=== PATIENT | female | born 1995 | race Caucasian/White ===

== ENCOUNTER 2023-10-11 15:39 | Outpatient (REF) | payer OTHER, SELFPAY ==
--- NOTE | ~2023-10-11 | US_ITS ---
EXAMINATION: US PELVIS CLINICAL INFORMATION: Dyspareunia. Intramenstrual bleeding COMPARISON: None available. TECHNIQUE: Ultrasound of the pelvis is performed using both transabdominal and transvaginal transducers along with Doppler. Transvaginal imaging is performed due to inadequate visualization transabdominally. FINDINGS: Uterus: The uterus is anteverted, anteflexed and measures 9.1 x 3.8 x 5.0 cm The double wall endometrial thickness measures 2.3 cm The uterus is smooth in contour and has normal myometrial echogenicity. No visible fibroid. Adnexa: Both ovaries are visualized. There is normal color flow to the adnexa. There is no ovarian torsion. There is no pelvic ascites or fluid collection. Right ovary measures 3.0 x 1.9 x 2.5 cm and volume 7.5 mL. It appears unremarkable. Previously right ovary measured 2.9 x 1.3 x 2.6 cm. Left ovary measures 3.0 x 2.0 x 3.5 cm and volume 10.6 mL. It appears unremarkable. Previously it measured 2.2 x 1.5 x 2.8 cm and volume 4.7 mL. There is no free fluid in the cul-de-sac. US/US pelvic and transvaginal IMPRESSION: Slightly thickened endometrium measuring 2.3 cm but otherwise unremarkable uterus and ovaries.
== END 2023-10-11 15:40 | disposition home or self-care (01) ==
LOC: HO.US 15:39
PROVIDERS: PCP Internal Medicine; Visit Provider Advanced Practice Midwife
DX: N94.10 Unspecified dyspareunia (principal); N92.3 Ovulation bleeding
CPT/HCPCS: 76830; 76856

== ENCOUNTER 2023-10-26 15:25 | Outpatient (REF) | payer OTHER, SELFPAY ==
--- NOTE | ~2023-10-26 | US_ITS ---
EXAMINATION: US PELVIS CLINICAL INFORMATION: Follow-up thickened endometrium. LMP 10/13/2023 COMPARISON: Pelvic ultrasound 10/11/2023 TECHNIQUE: Ultrasound of the pelvis is performed using both transabdominal and transvaginal transducers along with Doppler. Transvaginal imaging is performed due to inadequate visualization transabdominally. FINDINGS: Uterus: The uterus is anteverted and measures 7.9 x 3.6 x 4.6 cm. The endometrial thickness is 1.0 cm. This previously measured measured 2.3 cm. Question of echogenic focus within the endometrium which raises the possibility of an endometrial polyp. The uterus is smooth in contour and has normal myometrial echogenicity. No visible fibroid. Adnexa: Both ovaries are visualized. There is normal color flow to the adnexa. There is no ovarian torsion. Right ovary measures 3.4 x 2.3 x 1.9 cm. Volume 7.8 mL. Left ovary measures 4.1 x 3.1 x 2.2 cm. Volume 14.6 mL. US/US pelvic and transvaginal IMPRESSION: 1. Normal endometrial thickness is 1.0 cm. 2. Question of echogenic focus within the endometrium which raises the possibility of an endometrial polyp. 3. Enlarged left ovary. 4. Normal right ovary.
== END 2023-10-26 15:26 | disposition home or self-care (01) ==
LOC: HO.US 15:25
PROVIDERS: PCP Internal Medicine; Visit Provider Advanced Practice Midwife
DX: R93.5 Abnormal findings on diagnostic imaging of other abdominal regions, including retroperitoneum (principal)
CPT/HCPCS: 76830; 76856

== ENCOUNTER 2023-11-22 14:51 | Outpatient (REF) | payer OTHER, SELFPAY ==
[2023-11-22 16:53] LABS: Free T4 (Free Thyroxine) 0.99 ng/dL (0.71-1.85); Thyroid Stimulating Hormone 1.31 uIU/mL (0.32-4.0)
[2023-11-23 08:10] LABS: HBS Num1 0.01 mIU/mL (0-7.99); HBc Num1 1.15 S/CO (0.00-0.79); HBsAGNum1 0.39 S/CO (0.00-0.99); HIV AB/AG Nonreactive (Nonreactive); HIV Num 1 0.06 S/CO (0.00-0.99); Hepatitis B Surface Antigen Negative (Negative); ~HepC Num1 0.25 S/CO (0.00-0.79); ~Hepatitis B Surface Antibody NONREACTIVE (Nonreactive); ~Hepatitis C Antibody Nonreactive (Nonreactive)
[2023-11-23 08:34] LABS: Syphilis Screen Nonreactive (Nonreactive)
[2023-11-23 12:30] LABS: HBc Num2 1.23 S/CO; HBc Num3 1.19 S/CO; Hepatitis B Core Antibody Reactive (Nonreactive)
[2023-11-24 19:08] LABS: Hepatitis B Core Antibody IgM NON-REACTIVE (NON-REACTIVE)
== END 2023-11-22 14:52 | disposition home or self-care (01) ==
LOC: HO.HHCL 14:51
PROVIDERS: Visit Provider Family Medicine
DX: K59.00 Constipation, unspecified (principal); Z11.3 Encounter for screening for infections with a predominantly sexual mode of transmission
CPT/HCPCS: 36415; 84439; 84443; 86704; 86705; 86706; 86780; 86803; 87340; 87389

== ENCOUNTER 2025-01-30 10:08 | Outpatient (REF) | payer OTHER, SELFPAY ==
--- OUTSIDE RECORDS SUMMARY | 2025-01-30 10:50 | XMS_ITS | Encounter Summary ---
Author Organization [employer] Address [address] [place] [address] [address] [place] [address] Care Team Providers Care Senior Managing Director Name Role Phone Rosmery Sagastume MD Primary Care Provider [phone] Reason for Visit * Reason Onset Date Comments Returning Call 10/13/2023 Encounter Details Date Type Department Care Team (Late st Contact Info) Description 10/13/2023 Telephone [facility] [address] [place] [address] [phone] Rosmery Sagastume MD [address] [place] [address] [phone] Returning Call Social History Tobacco Use Types Packs/Day Years Used Date Smoking Tobacco: Former Passive Smoke Exposure: Current Smokeless Tobacco: Never Alcohol Use Standard Drinks/Week Comments Yes 0 (1 standard drink = 0.6 oz pur e alcohol) Comments No Sex and Gender Information Value Date Recorded Sex Assigned at Female 07/06/2022 10:36 AM EDT Legal Sex Female 10:36 AM EDT Gender Identity Female 07/06/2022 10:36 AM EDT Sexual Orientation Straight 07/06/2022 10 :36 AM EDT documented as of this encounter Miscellaneous Notes * Telephone Encounter - Jovani Alcazar - 10/13/2023 3:49 PM EST Tct from pt stating they received a call copy writer didn't see any notes. documented in this encounter Plan of Treatment Upcoming Encounters Date Type Department Care Team (Late st Contact Info) Description 03/12/2025 1:15 PM EDT Office Visit [facility] [address] [place] [phone] Rosmery Sagastume MD [address] [place] [address] documented as of this encounter Visit Diagnoses Not on filedocumented in this encounter Care Teams Senior Managing Director Relationship Specialty Start Date End Date Rosmery Sagastume MD [address] [place] [address] PCP - General Family Medicine 11/22/23 documented as of this encounter
[2025-01-30 11:46] LABS: HIV AB/AG Nonreactive (Nonreactive); HIV Num 1 0.07 S/CO (0.00-0.99)
[2025-01-30 11:48] LABS: Syphilis Screen Nonreactive (Nonreactive)
[2025-01-30 17:48] LABS: Bacterial Vaginosis PCR POSITIVE (Negative); Candida Group PCR NOT DETECTED (Not Detect); Candida glab krusei PCR NOT DETECTED (Not Detect); Trichomonas vaginalis PCR NOT DETECTED (Not Detect)
[2025-01-30 18:21] LABS: CT PCR NOT DETECTED (Not Detect.); NG PCR NOT DETECTED (Not Detect.)
== END 2025-01-30 10:09 | disposition home or self-care (01) ==
LOC: HO.HHCL 10:08
PROVIDERS: Visit Provider Advanced Practice Midwife
DX: Z11.3 Encounter for screening for infections with a predominantly sexual mode of transmission (principal)
CPT/HCPCS: 36415; 81515; 86780; 87389; 87491; 87591

== ENCOUNTER 2025-02-26 12:36 | Outpatient (REF) | payer OTHER, SELFPAY ==
--- NOTE | ~2025-02-26 | US_ITS ---
CLINICAL HISTORY: AUB US pelvis transabdominal and transvaginal with Doppler Comparison: None provided Findings: Transabdominal scanning performed for overall anatomy. Transvaginal scanning performed for additional detail. Anteverted uterus is 7.7 cm length. Normal myometrium. Endometrium 2 mm thickness. Small amount of lower uterine segment fluid. No evidence of intrauterine gestation. Right ovary 2.9 x 1.5 x 2.9 cm. Left ovary 3.2 x 1.9 x 4.6 cm. Exophytic left ovarian cyst measuring 16 mm. Small amount of adjacent free fluid. Normal color Doppler with arterial/venous spectral tracing of both ovaries. IMPRESSION: 1. No acute process. This document has been electronically signed by: Karina Wood MD on 02/27/2025 13:56:41
--- OUTSIDE RECORDS SUMMARY | 2025-02-26 13:57 | XMS_ITS | Encounter Summary ---
Author Organization [employer] Address [address] [place] [address] 7[address] [place] [address] Care Team Providers Care Facial Operator Name Role Phone Rosmery Sagastume MD Primary Care Provider [phone] Reason for Visit * Reason Onset Date Comments Returning Call 10/13/2023 Encounter Details Date Type Department Care Team (Late st Contact Info) Description 10/13/2023 Telephone [facility] [address] [place] [address] [phone] Rosmery Sagastume MD [address] [place] [address] [phone] Returning Call Social History Tobacco Use Types [...] from pt stating they received a call advertising writer didn't see any notes. documented in this encounter Plan of Treatment Upcoming Encounters Date Type Department Care Team (Late st Contact Info) Description 03/12/2025 1:15 PM EDT Office Visit [facility] [address] [place] [phone] Rosmery Sagastume MD [address] [place] [address] documented as of this encounter Visit Diagnoses Not on filedocumented in this encounter Care Teams Facial Operator Relationship Specialty Start Date End Date Rosmery Sagastume MD [address] [place] [address] PCP - General Family Medicine 11/22/23 documented as of this encounter
== END 2025-02-26 12:37 | disposition home or self-care (01) ==
LOC: HO.HMGCX 12:36
PROVIDERS: PCP Family Medicine; Visit Provider Advanced Practice Midwife
DX: N93.9 Abnormal uterine and vaginal bleeding, unspecified (principal)
CPT/HCPCS: 76830; 76856

== ENCOUNTER → 2025-02-26 12:40 | Outpatient (BNV) | payer OTHER, SELFPAY | PROVIDERS: PCP Family Medicine; Visit Provider Radiology Diagnostic Radiology | DX: N93.9 Abnormal uterine and vaginal bleeding, unspecified (principal) | CPT/HCPCS: 76830; 76856 ==

== ENCOUNTER 2025-03-12 13:37 | Outpatient (REF) | payer OTHER, SELFPAY ==
--- OUTSIDE RECORDS SUMMARY | 2025-03-12 14:07 | XMS_ITS | Encounter Summary ---
Author Organization [employer] Address [address] [facility] 7t [place] [address] Care Team Providers Care Front Desk Specialist Name Role Phone Rosmery Sagastume MD Primary Care Provider [phone] Reason for Visit * Reason Onset Date Comments charperp 03/08/2025 Encounter Details Date Type Department Care Team ([facility] st Contact Info) Description 03/08/2025 Telephone [facility] [address] [place], [place] [phone] Rosmery Sagastume MD [address] [place], [place] [phone] charper Social History Tobacco Use Types Packs/Day Years Used Date Smoking Tobacco: Some Days Cigarettes Passive Smoke Exposure: Current Smokeless Tobacco: Never Alcohol Use Standard Drinks/Week Comments Yes 0 (1 standard drink = 0.6 oz pur e alcohol) Depression Answer Date Recorded Patient Health Questionnaire-9 Score 1 11/22/2023 Patient Health Questionnaire-9 Score 1 11/22/2023 Last PHQ-9: Questionnaire Data Not on file 0 11/22/2023 Housing Stability Answer Date Recorded What is your housing situation today? I have iris byers 03/02/[address] you li ve. Do you have problems with any of the following? None of the above 03/02/2025 Food Insecurity Answer Date Recorded Within the past 12 months, y ou worried that your food would run out before you got money to buy more: Never True 03/02/2025 Within the past 12 months,th e food you bought just didn't last and you didn't have enough money to get more: Never True Transportation Answer Date Recorded In the past 12 months, has l ack of transportation kept you from medical appts, meetings, work or from getting things needed for daily living? No 03/02/2025 Utilities Answer Date Recorded In the past 12 months, has t he electric, gas, oil or water company threatened to shut off services in your home? No 03/02/2025 Depression Answer Date Recorded Patient Health Questionnaire-2 Score 0 11/22/2023 Internet Access Answer Date Recorded Internet Access Q1 No 03/02/2025 Internet Access Q2 I do not want or need it 02/05 Comments No Sex and Gender Information Value Date Recorded Sex Assigned at Female 07/06/2022 10:36 AM EDT Legal Sex Female 10:36 AM EDT Gender Identity Female 07/06/2022 10:36 AM EDT Sexual Orientation Straight 07/06/2022 10 :36 AM EDT documented as of this encounter Miscellaneous Notes * Telephone Encounter - Marielos Lechuga [place] - 03/08/2025 12:13 PM EDT ..Chart Prep Labs: done Images: US pelvic done Vaccines due: Covid Due, Hep B Due, and PCV20 Due Referrals: Not Applicable Screenings: Not Applicable Overdue care gaps: Sbirt, PQ9, GAD7, and Disability documented in this encounter Plan of Treatment Not on file documented as of this encounter Visit Diagnoses Not on filedocumented in this encounter Additional Health Concerns Assessment Noted Time PHQ-9 Depression Total Score: 1 11/22/19 24 3:05 PM EDT documented as of this encounter Care Teams Front Desk Specialist Relationship Specialty Start Date End Date Rosmery Sagastume MD [address] [place] [address] PCP - General Family Medicine 11/22/23 documented as of this encounter
--- OUTSIDE RECORDS SUMMARY | 2025-03-12 14:08 | XMS_ITS | Continuity of Care Document ---
Author Organization [place] [facility] Address [address] [facility] [address] [place] [address] Care Team Providers Care Spanish Tutor Name Role Phone SATINDER ZEPEDA Primary Care Provider Assessment Encounter Date Assessment Date Assessment LastModified by Organization Details LastModified Time 03/07/2025 03/07/2025 Visit With: DEBBY Allen Use of Antihistamine s: Yes If yes: Vial Test Change in medications: No If yes Increase in asthma symptoms If yes, inhaler use: Reaction to last injections: No If yes: Allergy Symptoms: Other: Missed: Dose Aware of Vial Test Aware: Notes: [email or web address] Not available 03/07/2025 15:44:23 Plan of Treatment Reminders Order Date Submit Date Provider Last Modified By Organization Details Last Modified Time Details Appointments None record ed. Lab None record ed. Referral None record ed. Procedures None record ed. Surgeries None record ed. Imaging None record ed. Medication Orders None record ed. Patient TargetsNo targets recorded. Patient InstructionsNo instructions recorded. Reason for Referral None Reported. Problems Name Problem SNOMED Code Status Onset Date Resolution Date Notes Provider Name and Address Organization Details Recorded Time Nasal congestion 25881263 Active 2023 ERICA HWANG PA-C [address] [facility],[place] [address], [place], [address], [place] [facility] 4 12:14:58 Allergic rhinitis 60351926 Active 2023 ERICA HWANG PA-C [address] [facility], [place], [address], [place] [facility] 4 12:15:06 Deviated nasal septum 539510771 Active 2023 ERICA HWANG PA-C [address], [place], [address], [place] [facility] 4 12:15:27 Chronic mouth breathing 140038439 Active 2023 ERICA HWANG PA-C [address], [place], [address], [facility] - [facility] 4 12:20:11 Seasonal allergic rhinitis 048199058 Active 2023 ERICA HWANG PA-C [address], [place], [address], [place] [facility] 4 12:22:51 Non-allergi c rhinitis 322649606567 Active 2023 ERICA HWANG PA-C [address], [facility] [place], [address], [place] [facility] 4 12:22:51 Disorder of smell 182667077 Active 2023 ERD FRANCISCO MD [address], [facility] [place], [address], [facility] - [facility] 4 12:41:12 Chronic sinusitis 15327104 Active 2023 RED FRANCISCO MD [address], [facility] [place], [address], [facility] - [facility] 4 08:43:35 Perennial allergic rhinitis 421545182 Active 2023 BENNY SIFUENTES [facility] [address], [place], [address], [facility] - [facility] 4 15:19:40 Chronic rhinitis 85316722 Active 2024 GEOVANY TALAMANTES [facility] [address], [place], [address], [place] [facility] 14:49:59 Polyp of nasal cavity 650620617 Active 2024 RED FRANCISCO MD [address] [facility],[address], [address], [place] [facility] 15:05:54 Problem Notes None recorded. Procedures Surgical History Date Name Laterality Status Provider Name and Address Organization Details Recorded Time 03/07/20 25 Allergy Immunotherapy Injections completed DEBBY ALLEN [facility] [place], [address], [facility] - [facility] 03/07/2025 15:44:08 03/02/20 25 Allergy Immunotherapy Injections completed DEBBY MURRIETA [address] [facility],[address], [address], [facility] - [facility] 03/02/2025 15:11:13 02/22/20 25 Allergy Immunotherapy Injections completed EVELYNE HERNANDEZ RN [address] [facility],[address], [address], [facility] - [facility] 02/21/2025 16:27:48 02/15/20 25 Allergy Immunotherapy Injections completed DEBBY MURRIETA [address] [facility],[address], [address], [facility] - [facility] 02/14/2025 16:18:10 02/09/20 25 Allergy Immunotherapy Injections completed DEBBY MURRIETA [address] [facility],[address], [address], [facility] - [facility] 02/08/2025 15:14:28 02/03/20 25 JMSNasal/Sinus Endoscopy completed RED OCAMPO MD [address] [facility],[address], [address], [facility] - [facility] 02/02/2025 15:18:14 11/02/19 25 Allergy Immunotherapy Injections completed EVELYNE HERNANDEZ RN [address] [facility],[address], [address], [facility] - [facility] 11/02/2024 14:58:47 10/27/19 25 Allergy Immunotherapy Injections completed BENNY KORZEC, RMA [address], [place], [address], [place] [facility] 10/27/2024 15:26:19 10/19/19 25 Allergy Immunotherapy Injections completed BENNY SIFUENTES, RMA [address], [place], [address], [place] [facility] 10/19/2024 15:24:59 10/11/19 25 Allergy Immunotherapy Injections completed EVELYNE HERNANDEZ RN [address] [address], [place], [address], [place] [facility] 10/11/2024 14:45:29 10/04/19 25 Allergy Immunotherapy Injections completed DEBBY MURRIETA [address],[place] [address] [place] [address], [address], [place] [facility] 10/04/2024 14:55:55 10/04/19 25 JMSNasal/Sinus Endoscopy completed RED OCAMPO MD [address],[place] [address] [place] [address], [address], [place] [facility] 10/04/2024 16:06:47 09/28/19 25 Allergy Immunotherapy Injections completed EVELYNE HERNANDEZ RN [address] [facility] [address] [address],[place] [address] [place] [address], [address], [place] [facility] 09/28/2024 15:12:12 09/22/19 25 Allergy Immunotherapy Injections completed BENNY SIFUENTES, RMA [address],[place] [address] [place] [address], [address], [place] [facility] 09/22/2024 14:55:33 09/15/19 25 Allergy Immunotherapy Injections completed DEBBY MURRIETA [address],[place] [address] [place] [address], [address], [place] [facility] 09/15/2024 14:50:20 09/07/19 25 Allergy Immunotherapy Injections completed BENNY SIFUENTES, RMA [address],[place] [address], [place], [address], [place] [facility] 09/08/2024 08:49:22 08/31/20 24 Allergy Immunotherapy Injections completed EVELYNE HERNANDEZ RN [address] [facility] [place] [address] [place] [address], [address], [facility] - [facility] 08/31/2024 14:53:10 08/24/20 24 Allergy Immunotherapy Injections completed BENNY SIFUENTES [facility] [address] [address],[place] [address] [place] [address], [address], [facility] - [facility] 08/24/2024 11:00:28 08/16/20 24 Allergy Immunotherapy Injections completed DEBBY MURRIETA [facility] [place] [facility], [place], [address], [facility] - [facility] 08/16/2024 15:01:32 08/09/20 24 Allergy Immunotherapy Injections completed BENNY SIFUENTES [facility] [address] [facility] [place] [address] [place] [address], [address], [facility] - [facility] 08/09/2024 15:02:14 07/31/20 24 Allergy Immunotherapy Injections completed BENNY SIFUENTES [facility] [address] [facility] [place] [address] [place] [address], [address], [facility] - [facility] 07/31/2024 15:26:48 07/12/20 24 JMSNasal/Sinus Endoscopy completed RED OCAMPO MD [address] [facility] [place] [address] [place] [address], [address], [facility] - [facility] 07/12/2024 08:42:28 06/08/20 24 Allergy Testing-Full completed DEBBY MURRIETA [address] [facility] [place] [address] [place] [address], [address], [facility] - [facility] 06/08/2024 15:51:49 Imaging Results None recorded. Procedure Notes None recorded. Medical Equipment None Reported. Allergies No known drug allergies Medications Name Sig Start Date Stop Date Status Note LastModified by Organization Details LastModified Time budesonide 32 mcg/actuati on nasal spray Take 2 sprays by nasal route. 2024 active Not Available Not Available Not Avai lable cetirizine 10 mg tablet TOME 1 TABLETA POR V A ORAL TODOS LOS D EN LA MA ROSARIO 05/26 completed Not Available Not Available Not Available cefpodoxime 200 mg tablet TOME 1 TABLETA POR V A ORAL DOS VECES AL D A POR 10 D 05/26 completed Not Available Not Available Not Available tretinoin 0.025 % topical cream PLEASE SEE ATTACHED FOR DETAILED DIRECTION S 07/12 completed Not Available Not Available Not Available tretinoin 0.05 % topical cream active Not Available Not Available Not Available docusate sodium 100 mg capsule TAKE 1 CAPSULE BY MOUTH ONCE OR TWICE DAILY NEEDED FOR CONSIPATI ON 05/26 completed Not Available Not Available Not Available azelastine 137 mcg (0.1 %) nasal spray ROCIAR 2 VECES BY INTRANASA L ROUTE DOS VECES AL D A active Not Available Not Available No t Available epinephrine 0.3 mg/0.3 mL injection, auto-inject or TAKE 1 AUTO BY INJECTION ROUTE FOR 180 DAYS, FOR ANAPHYLAX IS. active Not Available Not Available No t Available fluticasone propionate 50 mcg/actuati on nasal spray,suspe nsion ROCIAR 2 VECES EN CADA [place] A DE LA NARIZ TODOS LOS GUALLPA FOR 30 DAYS 2024 active Not Available Not Available Not Avai lable spironolact one 50 mg tablet 10/04 completed Not Available Not Available Not Available clindamycin 1 % lotion APPLY TO THE INFLAMED LESIONS ON THE FACE AND CHEST ONCE DAILY NEEDED 02/02 completed Not Available Not Available Not Available Vitamin 27 mg iron-0.8 mg tablet TOME BRIANA TABLETA TODOS LOS D EN LA SUSAN ROSARIO 05/26 completed Not Available Not Available Not Available magnesium 02/02 completed Not Available Not Available Not Available Vitals None Recorded Social History None recorded. Functional Status None recorded. Mental Status None recorded. Family History Nothing Reported. Medical History Condition Response Allergies/Hayfever Y Heart Problems N Anxiety N Tonsil Infections N Emphysema N Migraines N Thyroid Problems N Developmental Delay N COPD N Depression N Glaucoma N Nasal or Sinus Problems Y Anemia N Immune System Disorder N Anesthesia Complications N Heart Attack ([place]) N Other Skin Condition N Diabetes N Rhinitis N Bleeding Disorder N Food Allergy N Arthritis N Hearing Loss N Hyperlipidemia N Cancer N Eczema N Stroke N Dementia N Nasal polyps N Asthma N Sleep Disorder N GERD/Reflux N High Cholesterol N Liver Disease N Headaches Y Fibromyalgia N Hypertension N Speech Delay N Kidney Disease N Gynecological HistoryNo gynecological history recorded. Obstetrics History GPAL:G 0 P 0 0 0 0 Past Encounters Encounter ID Performer Location Encounter Start Date Encounter Closed Date Diagnosis/Indication Diagnosis SNOMED-CT Code Diagnosis ICD10 Code Diagnosis Note [id number] TANNER MURRIETAA [facility] [place] [place] [address] 02/08/2025 14:56:45 02/08/2025 15:15:05 Perennial allergic rhinitis 029195242 J30.89 [id number] TANNER MURRIETAA [facility]ergy [facility] [place] [place] [address] 02/14/2025 15:50:35 02/14/2025 16:18:55 Perennial allergic rhinitis 540338168 J30.89 [id number] BENNY SIFUENTES, RMA Allergy [facility] [place] [place] [address] 02/21/2025 16:18:37 02/21/2025 16:28:19 Perennial allergic rhinitis 374483642 J30.89 Patient presents to begin immunother apy injections . Reviewed injection hours, importance of compliance and of reporting any changes in medication s. Also reviewed importance of reporting any local reactions to immunother apy injections . For patients of child bearing age, reviewed importance of reporting . Follow up with MD made in 6 months. [id number] TANNER MURRIETAA [facility] [place] [place] [address] 03/02/2025 14:37:53 03/02/2025 15:12:08 Perennial allergic rhinitis [id number] J30.89 [id number] BENNY SIFUENTES RMA [facility]ergy [facility] [place] [place] [address] 03/07/2025 15:35:55 03/07/2025 15:45:02 Perennial allergic rhinitis 897282096 J30.89 Health Concerns Section Related Observation LastModified by Organization Detai ls LastModified Time None Recorded Concern Status LastModified by Organization Details LastModified Time None Recorded Payers Encounter Date Sequence Insurance Name Policy Number Policy Keen Covered Member ID Keen Member ID Guarantor Name 03/07/2025 1 [facility] (O) [id number] Mary Alcazar [id number] Mary Alcazar OBGyn Episode No OBEpisode recorded.
--- OUTSIDE RECORDS SUMMARY | 2025-03-12 14:08 | XMS_ITS | Clinical Summary ---
Author Organization [facility] ity Address [address] [place] [address] Care Team Providers Care Senior It Project Manager Name Role Phone Unavailable Primary Care Provider Unavailabl e Social History Tobacco Use Types Packs/Day Years Used Date Smoking Tobacco: Never Assessed Comments Unknown Sex and Gender Information Value Date Recorded Sex Assigned at Not on file Legal Sex Female 4:57 AM EST Gender Identity Not on file Sexual Orientation Not on file Plan of Treatment Health Maintenance Due Date Last Done Comments DTaP,Tdap,and Td Vaccines (1 - Tdap) 2016 Hepatitis B Vaccines (1 of 3 - 19+ 3-dose series) 2016 Cervical Cancer Screening: P ap Smear 2018 COVID-19 Vaccine ( - 2023-2 5 season) 2024 Influenza Vaccine (#1) 2025 HIB Vaccines Aged Out No longer eligi ble based on patient's age to complete this topic HPV Vaccines Aged Out No longer eligi ble based on patient's age to complete this topic Hepatitis A Vaccines Aged Out No long er eligible based on patient's age to complete this topic IPV Vaccines Aged Out No longer eligi ble based on patient's age to complete this topic MMR Vaccines Aged Out No longer eligi ble based on patient's age to complete this topic Meningococcal ACWY Vaccine Aged Out N o longer eligible based on patient's age to complete this topic Meningococcal B Vaccine Aged Out No l onger eligible based on patient's age to complete this topic Pneumococcal Vaccine: Pediat rics (0 to 5 Years) and At-Risk Patients (6 to 49 Years) Aged Out No longer eligible b ased on patient's age to complete this topic RSV Immunization Patients Un lydia 20 months Aged Out No longer eligible b ased on patient's age to complete this topic Varicella Vaccines Aged Out No longer eligible based on patient's age to complete this topic
--- OUTSIDE RECORDS SUMMARY | 2025-03-12 14:08 | XMS_ITS | Clinical Summary ---
Author Organization [facility] Address [address] [place] [address] Care Team Providers Care Daycare Worker Name Role Phone EvelioKanu klein [place] Primary Care Provider [phone] Source Comments PLEASE NOTE, if this patient is a minor, it may be UNLAWFUL to discuss sensitive information that is contained in these records (such as FAMILY PLANNING, MENTAL HEALTH or SUBSTANCE ABUSE) with the minor patient's parent or other person without the patient's specific authorization.[facility] Allergies No known active allergies Medications No known medications Active Problems Problem Noted Date Diagnosed Date Cysts of both ovaries 09/07/2017 Overview (11/19/2017): U/S Pelvis 08/25/17 at [facility] shows enlarged L ovary- likely hemorrhagic cyst, recommends f/u U?S in 3-4 months. Moved L ovarian cyst. Normal blood flow. U/S Pelvis 11/11/17 Normal. Interim resolution of complex left ovarian lesion, most likely represented a hemorrhagic corpus luteum. Bilateral lower extremity pain 03/22/2017 Overview (03/22/2017): [facility] ED 03/16/17, u/S of lower extremity venous U/S normal. No evidence DVT Pilonidal abscess 02/16/2017 Overview (02/16/2017): 01/28/[address] Christopher at [facility]. 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 Heart murmur, systolic 02/02/2017 Overview (02/02/2017): Per previous PCP- systolic ejection murmur- referred for echo 06/28/16 Echocardiogram 8/30/16 normal LAD (lymphadenopathy) 02/02/2017 Overview (02/02/2017): H/o LAD per previous PCP- U/S of neck 04/30/16 normal. Allergic rhinitis 02/02/2017 Overview (02/02/2017): Per previous PCP; on Nasonex and Singulair Social History Tobacco Use Types Packs/Day Years Used Date Smoking Tobacco: Never Smokeless Tobacco: Never Alcohol Use Standard Drinks/Week Comments Yes 0 (1 standard drink = 0.6 oz pur e alcohol) Socially Social Connections Answer Date Recorded Connectedness 0 05/26/2024 Financial Resource Strain Answer Date R ecorded Financial Resource Strain 0 2023 Stress Answer Date Recorded Stress 0 11/17/2023 Physical Activity Answer Date Recorded Physical Activity 0 11/17/2023 Food Insecurity Answer Date Recorded Food 0 06/01/2024 Transportation Needs Answer Date Record ed Transportation 0 11/17/2023 Housing Stability Answer Date Recorded Housing 0 11/17/2023 Safety and Environment Answer Date Say rded Safety 0 11/17/2023 Utilities Answer Date Recorded Utilities 0 11/17/2023 Employment Answer Date Recorded Stress 0 05/26/2024 Comments No Sex and Gender Information Value Date Recorded Sex Assigned at Female 01/18/2017 6:55 AM PDT Legal Sex Female 9:15 AM PDT Gender Identity Female 01/18/2017 6:55 AM PDT Sexual Orientation Straight 01/18/2017 6: 55 AM PDT Last Filed Vital Signs Vital Sign Reading Time Taken Comments Blood Pressure 110/70 08/16/2017 9:24 AM EST Pulse 78 08/16/2017 9:24 AM EST Temperature 37.2 C (98.9 F) 08/16/2017 9:24 AM EST Respiratory Rate 16 08/16/2017 9:24 AM EST Oxygen Saturation - - Inhaled Oxygen Concentration - - Weight 52.2 kg (115 lb) 08/16/2017 9:24 AM EST Height 159 cm (5' 2.6 ) 08/16/2017 9:24 AM EST Body Mass Index 20.63 08/16/2017 9:24 AM EST Plan of Treatment Health Maintenance Due Date Last Done Comments Anxiety Screening 1997 HPV Screening 1997 Hepatitis C Screening 1997 Pap + HPV 1997 Tobacco Screening 1997 HIV Screening 2012 Relationship Safety Screening/Counseling 2012 Imm-DTaP/Tdap/Td (1 - Tdap) 2016 Imm-Hepatitis B (1 of 3 - 19 + 3-dose series) 2016 Cervical Cancer Screening 2018 Pap Smear 2018 Annual Wellness (Adult): Ind icated (All Coverage) 08/16/2018 08/16/2017 Hypertension Screening (#1) 08/15/2020 [id number] ( season) 2024 Alcohol and Drug Screen 09/06/2024 08/16/2017, 08/16 Depression Annual Screen 09/06/2024 08/16/2017 Imm-Influenza (#1) 2025 Cervical Ablation/Cold-Knife Conization Discontinued Cervical Cryotherapy Discontinued Colposcopy Discontinued Endometrial Biopsy Discontinued Excision/Leep Discontinued HPV Genotyping Discontinued Vaginal Pap Discontinued Vulvoscopy Discontinued Insurance [employer] Member Subscriber Plan / Payer (Ef fective 2017-Present) Name:Mary Alcazar Relation to Subscriber:Self Name:Mary Alcazar Payer ID:[id number] Group ID:Not on file Type:Medicaid Address: [address] [phone] [employer] COM Member Subscriber Plan / Payer (Ef fective 2023-Present) Name:Mary Alcazar Relation to Subscriber:Self Name:Mary Alcazar Payer ID:[id number] Type:Indemnity Address: [address] [address] [place] [address] Care Teams Daycare Worker Relationship Specialty Start Date End Date Kanu Fraser FNP-C [facility] [place] [address] PCP - General Internal Medicine 11/18/23
[2025-03-12 17:11] LABS: MANUAL DIFF FLAG NO
[2025-03-12 17:24] LABS: Alanine Aminotransferase 19 U/L (0-31); Albumin Level 4.1 g/dL (3.5-5.0); Alkaline Phosphatase 53 U/L (39-117); Anion Gap 9 (12-20); Aspartate Amino Transferase 30 U/L (5-31); Blood Urea Nitrogen 7 mg/dL (9-16); Calcium 8.9 mg/dL (8.4-10.2); Carbon Dioxide 28 mmol/L (22-29); Chloride 105 mmol/L (96-108); Estimated Glomerular Filt Rate > 60; Hematocrit 34.8 % (37.0-47.0); Hemoglobin 11.4 g/dl (12.0-16.0); Imm Gran Abs Auto 0.01 X10*3/uL (0.00-0.03); Imm Gran Pct Auto 0.2 % (0.0-0.4); Lymphocytes Absolute Auto 2.6 X10*3/uL (1.2-4.9); Mean Corpuscular HGB Conc 32.8 g/dl (31.0-35.0); Mean Corpuscular Hemoglobin 26.7 pg (27.0-33.0); Mean Corpuscular Volume 81.5 fL (80.0-98.0); NRBC Abs Auto 0.000 X10*3/uL (0.0-0.012); NRBC Pct Auto 0.0 /100WBC (0.0-0.2); Platelet Count 304 X10*3/uL (160-400); Potassium 4.2 mmol/L (3.3-5.1); Red Blood Count 4.27 X10*6/uL (4.20-5.50); Sodium 138 mmol/L (135-145); Total Protein 7.0 g/dL (6.5-8.0); White Blood Count 5.2 X10*3/uL (4.8-10.8)
== END 2025-03-12 13:38 | disposition home or self-care (01) ==
LOC: HO.HHCL 13:37
PROVIDERS: PCP Family Medicine; Visit Provider Family Medicine
DX: R53.83 Other fatigue (principal)
CPT/HCPCS: 36415; 80053; 85025

== ENCOUNTER 2025-03-30 15:31 | Outpatient (REF) | payer OTHER, SELFPAY ==
--- OUTSIDE RECORDS SUMMARY | 2025-03-30 15:34 | XMS_ITS | Encounter Summary ---
Author Organization [facility] Address [address] [place] [address] [address] [place] [address] Care Team Providers Care Computer Numerical Control Operator Name Role Phone Rosmery Sagastume MD Primary Care Provider [phone] Reason for Visit * Reason Onset Date Comments Returning Call 10/13/2023 Encounter Details Date Type Department Care Team (Late st Contact Info) Description 10/13/2023 Telephone [facility] [address] [place] [address] [phone] Rosmery Sagastume MD [address] [place], [place] [phone] Returning Call Social History Tobacco Use Types [...] Miscellaneous Notes * Telephone Encounter - Jovani Ottoniel - 10/13/2023 3:49 PM EST Tct from pt stating they received a call medical technical writer didn't see any notes. documented in this encounter Plan of Treatment Not on file documented as of this encounter Visit Diagnoses Not on filedocumented in this encounter Care Teams Computer Numerical Control Operator Relationship Specialty Start Date End Date Rosmery Sagastume MD [address] [place] [address] PCP - General Family Medicine 11/22/23 documented as of this encounter
--- OUTSIDE RECORDS SUMMARY | 2025-03-30 15:34 | XMS_ITS | Clinical Summary ---
Author Organization [facility] Address [address] [place] [address] Care Team Providers Care Sandblast Carver Name Role Phone EvelioKanu klein SALES SECRETARY-C Primary Care Provider [phone] Source Comments PLEASE NOTE, if this patient [...] 09/07/2017 Overview (11/19/2017): U/S Pelvis 08/25/17 at [facility] shows enlarged L ovary- likely hemorrhagic cyst, recommends f/u U?S in 3-4 months. Moved L ovarian cyst. Normal blood flow. U/S Pelvis 11/11/17 Normal. Interim resolution of complex left ovarian lesion, most likely represented a hemorrhagic corpus luteum. Bilateral lower extremity pain 03/22/2017 Overview (03/22/2017): [facility] ED 03/16/17, u/S of lower extremity venous U/S normal. No evidence DVT Pilonidal abscess 02/16/2017 Overview (02/16/2017): 01/28/[address] Christopher at [facility]. Advised plan To have area addressed [...] Coverage) 08/16/2018 08/16/2017 Hypertension Screening (#1) 08/15/2020 [id number] ( season) 2024 Alcohol and Drug Screen 09/06/2024 08/16/2017, 08/16 Depression Annual Screen 09/06/2024 08/16/2017 Imm-Influenza (#1) 2025 Cervical Ablation/Cold-Knife Conization Discontinued Cervical Cryotherapy Discontinued Colposcopy Discontinued Endometrial Biopsy Discontinued Excision/Leep Discontinued HPV Genotyping Discontinued Vaginal Pap Discontinued Vulvoscopy Discontinued Insurance [employer] Member Subscriber Plan / Payer (Ef fective 2017-Present) Name:Mary Alcazar Relation to Subscriber:Self Name:Mary Alcazar Payer ID:[id number] Group ID:Not on file Type:Medicaid Address: [address] [id number] [employer] Member Subscriber Plan / Payer (Ef fective 2023-Present) Name:Mary Alcazar Relation to Subscriber:Self Name:Mary Alcazar Payer ID:[id number] Type:Indemnity Address: [address] [address] [place] [address] Care Teams Sandblast Carver Relationship Specialty Start Date End Date Kanu Fraser FNP-C [facility] [place] [address] PCP - General Internal Medicine 11/18/23
--- OUTSIDE RECORDS SUMMARY | 2025-03-30 15:34 | XMS_ITS | Clinical Summary ---
Author Organization [facility] Address [address] [place] [address] Care Team Providers Care Courtroom Deputy Name Role Phone Unavailable Primary Care Provider [...] Vaccine ( - 2023-2 5 season) 2024 Depression Screening 09/06/2024 Influenza Vaccine (#1) 2025 HIB Vaccines Aged [...]
--- OUTSIDE RECORDS SUMMARY | 2025-03-30 15:34 | XMS_ITS | Data Portability ---
Author Organization [place] - [facility], Allergy Address [address] [place] [phone] Care Team Providers Care Manager Audit Name Role Phone SATINDER ZEPEDA Primary Care Provider Assessment Encounter Date Assessment Date Assessment LastModified by Organization Details LastModified Time 03/02/2025 03/02/2025 Visit With: Geovanna Talamantes Use of Antihistamine s: No If yes: Vial Test Change in medications: No If yes Increase in asthma symptoms If yes, inhaler use: Reaction to last injections: No If yes: Allergy Symptoms: Other: Missed: Dose Aware of Vial Test Aware: Notes: Not available 03/02/2025 15:11:37 03/07/2025 03/07/2025 Visit With: DEBBY Allen Use of Antihistamine s: Yes If yes: Vial Test Change in medications: No If yes Increase in asthma symptoms If yes, inhaler use: Reaction to last injections: No If yes: Allergy Symptoms: Other: Missed: Dose Aware of Vial Test Aware: Notes: [email or web address] Not available 03/07/2025 15:44:23 03/14/2025 03/14/2025 Visit With: DEBBY Allen Use of Antihistamine s: No If yes: Vial Test Change in medications: No If yes Increase in asthma symptoms If yes, inhaler use: Reaction to last injections: No If yes: Allergy Symptoms: Other: Missed: Dose Aware of Vial Test Aware: Notes: [email or web address] Not available 03/14/2025 16:12:42 03/23/2025 03/23/2025 Visit With: Evelyne Hernandez RN Use of Antihistamine s: No If yes: Vial Test Change in medications: No If yes Increase in asthma symptoms No Asthma Hx If yes, inhaler use: Reaction to last injections: No If yes: Allergy Symptoms: Other: Missed: Dose Aware of Vial Test Aware: Notes: [email or web address] Not available 03/23/2025 14:49:26 03/28/2025 03/28/2025 Visit With: Geovanna Talamantes Use of Antihistamine s: No If yes: Vial Test Change in medications: No If yes Increase in asthma symptoms If yes, inhaler use: Reaction to last injections: No If yes: Allergy Symptoms: Other: Missed: Dose Aware of Vial Test Aware: Notes: [email or web address] Not available 03/28/2025 16:07:03 Plan of Treatment Reminders Order Date Submit Date Provider Last Modified By Organization Details Last Modified Time Details Appointments [facility]- Allergy f-up 6mon 2024 01:00P M RED FRANCISCO MD Not available Not available Not available Lab None recorded . Referral None recorded . Procedures None recorded . Surgeries None recorded . Imaging None recorded . Medication Orders None recorded . Patient TargetsNo targets recorded. Patient InstructionsNo instructions recorded. Reason for Referral None Reported. Problems Name Problem SNOMED Code Status Onset Date Resolution Date Notes Provider Name and Address Organization Details Recorded Time Nasal congestion 02253011 Active 2023 ERICA HWANG PA-C [address] [place] [address], [phone], [facility] 4 12:14:58 Allergic rhinitis 80771111 Active 2023 ERICA HWANG PA-C [address] [place] [address], [phone], [facility] - [facility] 4 12:15:06 Deviated nasal septum 732764055 Active 2023 ERICA HWANG PA-C [address] [place] [address], [phone], [facility] - [facility] 4 12:15:27 Chronic mouth breathing 711845514 Active 2023 ERICA HWANG PA-C [address] [place] [address], [phone], [facility] - [facility] 4 12:20:11 Seasonal allergic rhinitis 920943421 Active 2023 ERICA HWANG PA-C 100 [facility], [facility], [facility], [place], [address], [facility] - [facility] 4 12:22:51 Non-allergi c rhinitis [id number] Active 2023 ERICA HWANG PA-C 100 [facility], [facility], [place], [address], [facility] - [facility] 4 12:22:51 Disorder of smell 121877153 Active 2023 RED FRANCISCO MD 100 [facility], [facility], [place], [address], [facility] - [facility] 4 12:41:12 Chronic sinusitis 30018690 Active 2023 RED FRANCISCO MD 100 [facility], [facility], [place], [address], [facility] - [facility] 4 08:43:35 Perennial allergic rhinitis 118452924 Active 2023 BENNY SIFUENTES, [facility] [address] [facility] [place],[address], [place], [address], [facility] - [facility] 4 15:19:40 Chronic rhinitis 43616317 Active 2024 GEOVANNA TALAMANTES [facility] 100 [facility],[address], [place], [address], [facility] - [facility] 5 14:49:59 Polyp of nasal cavity 112713381 Active 2024 RED FRANCISCO MD 100 [facility],[address], [place], [address], [facility] - [facility] 5 15:05:54 Problem Notes None recorded. Procedures Surgical History Date Name Laterality Status Provider Name and Address Organization Details Recorded Time 07/23/20 25 Allergy Immunotherapy Injections completed DEBBY MURRIETA [address], [place], [address], [place] [facility] 03/28/2025 16:06:57 03/23/20 25 Allergy Immunotherapy Injections completed EVELYNE HERNANDEZ RN [address], [place], [address], [place] [facility] 03/23/2025 14:49:21 03/14/20 25 Allergy Immunotherapy Injections completed BENNY SIFUENTES, RMA [address], [place], [address], [place] [facility] 03/14/2025 16:12:37 03/07/20 25 Allergy Immunotherapy Injections completed BENNY SIFUENTES RMA [address], [place], [address], [place] [facility] 03/07/2025 15:44:08 03/02/20 25 Allergy Immunotherapy Injections completed DEBBY MURRIETA [address] [facility], [place], [address], [place] [facility] 03/02/2025 15:11:13 02/22/20 25 Allergy Immunotherapy Injections completed EVELYNE HERNANDEZ RN [address] [facility] [place] [address], [address], [place] [facility] 02/21/2025 16:27:48 02/15/20 25 Allergy Immunotherapy Injections completed DEBBY MURRIETA [address] [facility] [place] [address], [address], [place] [facility] 02/14/2025 16:18:10 02/09/20 25 Allergy Immunotherapy Injections completed DEBBY MURRIETA [address], [place], [address], [place] [facility] 02/08/2025 15:14:28 02/03/20 25 JMSNasal/Sinus Endoscopy completed RED OCAMPO MD [address], [place], [address], [place] [facility] 02/02/2025 15:18:14 11/02/19 25 Allergy Immunotherapy Injections completed EVELYNE HERNANDEZ RN [address] [facility], [place], [address], [place] [facility] 11/02/2024 14:58:47 10/27/19 25 Allergy Immunotherapy Injections completed BENNY SIFUENTES, RMA [address], [place], [address], [place] [facility] 10/27/2024 15:26:19 10/19/19 25 Allergy Immunotherapy Injections completed BENNY SIFUENTES, RMA [address] [facility], [place], [address], [place] [facility] 10/19/2024 15:24:59 10/11/19 25 Allergy Immunotherapy Injections completed EVELYNE HERNANDEZ RN [address] [facility] [place],[address] [place] [address], [address], [place] [facility] 10/11/2024 14:45:29 10/04/19 25 Allergy Immunotherapy Injections completed DEBBY MURRIETA [address] [facility] [place] [address], [address], [place] [facility] 10/04/2024 14:55:55 10/04/19 25 JMSNasal/Sinus Endoscopy completed RED OCAMPO MD [address] [facility] [place] [address], [address], [place] [facility] 10/04/2024 16:06:47 09/28/19 25 Allergy Immunotherapy Injections completed EVELYNE HERNANDEZ RN [address] [facility] [address] [place] [address], [address], [place] [facility] 09/28/2024 15:12:12 09/22/19 25 Allergy Immunotherapy Injections completed BENNY SIFUENTES RMA [address] [facility] [address] [facility] [place] [address], [address], [place] [facility] 09/22/2024 14:55:33 09/15/19 25 Allergy Immunotherapy Injections completed DEBBY MURRIETA [address] [place] [address], [address], [place] [facility] 09/15/2024 14:50:20 09/07/19 25 Allergy Immunotherapy Injections completed BENNY SARMADC, RMA [address] [place] [address], [address], [place] [facility] 09/08/2024 08:49:22 08/31/20 24 Allergy Immunotherapy Injections completed EVELYNE HERNANDEZ RN [address] [facility], [place], [address], [place] [facility] 08/31/2024 14:53:10 08/24/20 24 Allergy Immunotherapy Injections completed BENNY SARMADC, RMA [address] [facility], [place], [address], [place] [facility] 08/24/2024 11:00:28 08/16/20 24 Allergy Immunotherapy Injections completed DEBBY MURRIETA [address] [facility] [place] [address], [address], [facility] - [facility] 08/16/2024 15:01:32 08/09/20 24 Allergy Immunotherapy Injections completed BENNY BAÑUELOSC, RMA [address] [facility] [address] [place] [address], [address], [place] [facility] 08/09/2024 15:02:14 07/31/20 24 Allergy Immunotherapy Injections completed BENNY SARMADC, RMA [address] [facility] [place] [address], [address], [place] [facility] 07/31/2024 15:26:48 07/12/20 24 JMSNasal/Sinus Endoscopy completed RED OCAMPO MD [address] [facility], [place], [address], [facility] - [facility] 07/12/2024 08:42:28 06/08/20 24 Allergy Testing-Full completed DEBBY MURRIETA [address] [facility], [place], [address], [facility] - [facility] 06/08/2024 15:51:49 Imaging Results None recorded. Procedure [...] V A ORAL TODOS LOS D EN UMAIR DAVIS ROSARIO 05/26 completed Not Available Not Available [...] TOME BRIANA TABLETA TODOS LOS D EN UMAIR PONCE 05/26 completed Not Available Not Available Not Available magnesium 02/02 completed Not Available Not Available Not Available Vitals None Recorded Social History None recorded. Functional Status None recorded. Mental Status None recorded. Family History Nothing Reported. Medical History Condition Response Allergies/Hayfever Y Heart Problems N Anxiety N Tonsil Infections N Emphysema N Migraines N Thyroid Problems N Glaucoma N Depression N COPD N Developmental Delay N Nasal or Sinus Problems Y Anemia N Immune System Disorder N Anesthesia Complications N Heart Attack ([place]) N Other Skin Condition N Diabetes N [...] SNOMED-CT Code Diagnosis ICD10 Code Diagnosis Note [id number] RED CROFT MD [facility] [address] [address] 05/26/2024 10:56:31 05/29/2024 07:32:13 Nasal congestion 12317159 R09.81 Allergic rhinitis 140437 04 J30.9 Deviated nasal septum 12 5335155 J34.2 anterior septum left Disorder of smell 210317 005 R43.9 [id number] GEOVANNA TALAMANTES [facility] [address] [place] [address] [address] [place] [address] 06/08/2024 14:26:29 06/12/2024 18:59:38 Allergic rhinitis 05784914 J30.9 [id number] RED CROFT MD [facility] [address] [address] 07/12/2024 08:30:10 07/12/2024 08:46:09 Nasal congestion 49947784 R09.81 Allergic rhinitis 266986 04 J30.9 We discussed that she needs to use fluticason e nasal spray consistent ly. I will send a prescripti on. She will also start injection immunother apy to help build immunity for her allergies. She understand s this is a long-term process. We also discussed the role of immunother apy. I explained that this is instituted for the most significan t of allergies and involves the introducti on of increasing ly graduated dosages of the appropriat e allergens by subcutaneo us injection to facilitate tolerance. I explained about the likelihood of some improvemen t usually within a three to six month time period provided that the patient is compliant with therapy. It may take substantia lly longer for patients with severe allergy. We spoke about the duration of therapy, which typically lasts from three to five years though at times can be indefinite . We also discussed the risk of anaphylaxi s with therapy. Use of an Epipen discussed. Deviated nasal septum 12 8720456 J34.2 marked mid to left Disorder of smell 196666 005 R43.9 [id number] BENNY BAÑUELOS [facility] Allergy 100 [facility], it 100 [facility] [place] [address] 07/31/2024 15:00:58 07/31/2024 16:01:03 Perennial allergic rhinitis 833094327 J30.89 Patient presents to begin immunother apy injections . Reviewed injection hours, importance of compliance and of reporting any changes in medication s. Also reviewed importance of reporting any local reactions to immunother apy injections . For patients of child bearing age, reviewed importance of reporting . Follow up with MD made in 6 months. [id number] BENNY BAÑUELOS [facility] Allergy 100 [facility],[place] [address] 100 [facility] [place] [address] 08/09/2024 14:51:18 08/09/2024 15:02:39 Perennial allergic rhinitis 983459968 J30.89 Patient presents to begin immunother apy injections . Reviewed injection hours, importance of compliance and of reporting any changes in medication s. Also reviewed importance of reporting any local reactions to immunother apy injections . For patients of child bearing age, reviewed importance of reporting . Follow up with MD made in 6 months. [id number] GEOVANNA TALAMANTES [facility] All[facility] 100 [facility],[place] [address] 100 [facility] [place] [address] 08/16/2024 14:48:41 08/16/2024 15:13:49 Perennial allergic rhinitis 918720230 J30.89 [id number] BENNY BAÑUELOS [facility] Allergy 100 [facility],[place] [address] 100 [facility] [place] [address] 08/24/2024 10:17:13 08/24/2024 11:01:15 Perennial allergic rhinitis 437447856 J30.89 Patient presents to begin immunother apy injections . Reviewed injection hours, importance of compliance and of reporting any changes in medication s. Also reviewed importance of reporting any local reactions to immunother apy injections . For patients of child bearing age, reviewed importance of reporting . Follow up with MD made in 6 months. [id number] EVELYNE HERNANDEZ RN Allergy [address] [place] [address] 100 [facility] [place] [address] 08/31/2024 14:44:39 08/31/2024 14:53:42 Perennial allergic rhinitis 684645612 J30.89 [id number] BENNY BAÑUELOS, [facility] All[facility] [address] [place] [address] 100 [facility] [place] [address] 09/07/2024 14:47:43 09/08/2024 08:50:17 Perennial allergic rhinitis 562007802 J30.89 Patient presents to begin immunother apy injections . Reviewed injection hours, importance of compliance and of reporting any changes in medication s. Also reviewed importance of reporting any local reactions to immunother apy injections . For patients of child bearing age, reviewed importance of reporting . Follow up with MD made in 6 months. [id number] DEBBY MURRIETA [facility] [address] [place] [address], [place] [address] 09/15/2024 14:43:41 09/15/2024 15:06:22 Perennial allergic rhinitis 578744292 J30.89 [id number] BENNY BAÑUELOS, [facility] All[facility] [address] [place] [address] 100 [facility] [place] [address] 09/22/2024 14:43:39 09/22/2024 14:56:26 Perennial allergic rhinitis 647181241 J30.89 Patient presents to begin immunother apy injections . Reviewed injection hours, importance of compliance and of reporting any changes in medication s. Also reviewed importance of reporting any local reactions to immunother apy injections . For patients of child bearing age, reviewed importance of reporting . Follow up with MD made in 6 months. [id number] DEBBY MURRIETA [facility] [address] [place] [address] 100 [facility] [place] [address] 09/28/2024 14:40:10 09/28/2024 15:12:38 Perennial allergic rhinitis 041844451 J30.89 [id number] RED CROFT MD [facility] 100 [place] [address] 10/04/2024 14:36:56 10/04/2024 16:08:21 Allergic rhinitis 93966197 J30.9 Patient with persistent nasal congestion . I had prescribed fluticason e but her pharmacy plan apparently did not cover it. She still notes congestion . She is tolerating allergy shots. CT was performed today. 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 We will try to send in a different nasal steroid as well as Astelin. We will see how she does over the next 3 to 4 months as she would like to try to avoid surgery. Polyp of nasal cavity 73 6352900 J33.0 [id number] GEOVANNA TALAMANTES, [facility] Allergy [address] [place] [address],[address] [place] [address] 10/04/2024 14:40:46 10/04/2024 14:56:24 Perennial allergic rhinitis 520349280 J30.89 [id number] EVELYNE HERNANDEZ RN Allergy [address] [place] [address], [place] [address] 10/11/2024 14:40:04 10/11/2024 14:46:53 Perennial allergic rhinitis 356578297 J30.89 [id number] EVELYNE HERNANDEZ RN Allergy [address] [place] [address], [place] [address] 10/19/2024 14:47:02 10/19/2024 15:25:36 Perennial allergic rhinitis 730439429 J30.89 [id number] BENNY BAÑUELOS [facility] Allergy [address] [place] [address],[address] [place] [address] 10/27/2024 15:24:34 10/27/2024 15:27:13 Perennial allergic rhinitis 135972590 J30.89 Patient presents to begin immunother apy injections . Reviewed injection hours, importance of compliance and of reporting any changes in medication s. Also reviewed importance of reporting any local reactions to immunother apy injections . For patients of child bearing age, reviewed importance of reporting . Follow up with made in 6 months. [id number] EVELYNE HERNANDEZ RN Allergy [address] [place], [place] [address] 100 [facility] [place] [address] 11/02/2024 14:53:33 11/02/2024 14:59:10 Perennial allergic rhinitis 483118275 J30.89 [id number] RED CROFT MD [facility] [address] [place] [address] 02/02/2025 14:36:11 02/05/2025 10:32:58 Deviated nasal septum 063036246 J34.2 marked mid to left Perennial allergic rhinitis 882748960 J30.89 Polyp of nasal cavity 73 6550872 J33.0 [id number] GEOVANNA TALAMANTES [facility] Allergy [address] [place] [address], [place] [address] 02/08/2025 14:56:45 02/08/2025 15:15:05 Perennial allergic rhinitis 203311935 J30.89 [id number] GEOVANNA TALAMANTES [facility] Allergy [address] [place] [address], [place] [address] 02/14/2025 15:50:35 02/14/2025 16:18:55 Perennial allergic rhinitis 810815005 J30.89 [id number] BENNY SIFUENTES [facility] Allergy [address] [place] [address], [place] [address] 02/21/2025 16:18:37 02/21/2025 16:28:19 Perennial allergic rhinitis 890858737 J30.89 Patient presents to begin immunother apy injections . Reviewed injection hours, importance of compliance and of reporting any changes in medication s. Also reviewed importance of reporting any local reactions to immunother apy injections . For patients of child bearing age, reviewed importance of reporting . Follow up with MD made in 6 months. [id number] DEBBY MURRIETA [facility] [address] [place] [address] 100 [facility] [address] 03/02/2025 14:37:53 03/02/2025 15:12:08 Perennial allergic rhinitis 003711278 J30.89 [id number] BENNY SIFUENTES A [facility] [address] [place] [address],[address] [place] [address] 03/07/2025 15:35:55 03/07/2025 15:45:02 Perennial allergic rhinitis 158887767 J30.89 [id number] BENNY SARMADTrue, [facility] Allergy 100 [facility] 100 [place] [address] 03/14/2025 16:06:11 03/14/2025 16:12:58 Perennial allergic rhinitis 130994445 J30.89 [id number] EVELYNE HERNANDEZ RN Allergy 100 [facility], [address] 100 [facility] [place] [address] 03/23/2025 14:40:04 03/23/2025 14:49:46 Perennial allergic rhinitis 596982606 J30.89 [id number] GEOVANNA TALAMANTES, [facility] All[facility] 100 [facility] 100 [facility] [place] [address] 03/28/2025 15:57:21 03/28/2025 16:07:36 Perennial allergic rhinitis 385109688 J30.89 Health Concerns Section Related Observation LastModified by Organization Detai ls LastModified Time None Recorded Concern Status LastModified by Organization Details LastModified Time None Recorded Advance Directives Directive None Recorded Payers Insurance Date Sequence Insurance Name Policy Number Policy Keen Covered Member ID Keen Member ID Guarantor Name 06/05/2024 1 [facility] (MEDICAID HMO) [id number] Mary Alcazar [id number] Mary Alcazar 03/23/2025 1 [facility]HMO[facility] [id number] Mary Alcazar [id number] Mary Alcazar OBGyn Episode No OBEpisode recorded.
[2025-03-30 15:54] LABS: Reticulocytes Absolute 0.055 X10*6/uL (0.026-0.095)
[2025-03-30 16:46] LABS: Iron 81 mcg/dL (30-160); Percent Iron Saturation 26 % (15-50); Total Iron Binding Capacity 312 mcg/dL (228-428); Unsaturated Iron Binding 231 ug/dL
[2025-03-30 17:14] LABS: Ferritin 14 ng/mL (10-122); Folate 12.6 ng/mL (> or = 4.0); Vitamin B12 572 pg/mL (200-900)
== END 2025-03-30 15:32 | disposition home or self-care (01) ==
LOC: HO.LAB 15:31
PROVIDERS: PCP Family Medicine; Visit Provider Family Medicine
DX: D64.9 Anemia, unspecified (principal)
CPT/HCPCS: 36415; 82607; 82728; 82746; 83540; 84443; 85045

== ENCOUNTER 2025-04-13 14:10 | Outpatient (REF) | payer OTHER, SELFPAY | END 2025-04-13 14:11 | disposition home or self-care (01) | LOC: HO.LAB 14:10 | PROVIDERS: PCP Family Medicine; Visit Provider Family Medicine | DX: Z32.01 Encounter for pregnancy test, result positive (principal) | CPT/HCPCS: 36415; 84702 ==